=== PATIENT | female | born 1990 | race Caucasian/White ===

== ENCOUNTER 2019-05-13 09:46 | Day surgery (SDC) | payer BC, OTHER ==
[2019-05-09 18:30] VITALS: BMI 34.5
[2019-05-13] MEDS ORDERED: MIDAZOLAM HCL 2 MG/2 ML SINGLE DOSE VIAL ONE (11:48)
[2019-05-13] MEDS ORDERED: PROPOFOL 20 ML ONE ×4 (11:49→11:53)
[2019-05-13] MEDS ORDERED: ONDANSETRON 4 MG/2 ML VIAL IVPUSH PRN (12:13)
[2019-05-13] MEDS ORDERED: oxyCODONE HCL 5 MG TABLET PO PRN (12:13)
[2019-05-13] MEDS ORDERED: LACTATED RINGERS SOLUTION 1,000 ML IV SCH (12:15)
--- NOTE | 2019-05-13 12:29 | PN ---
Progress Note (short form) - Note Progress Note: VSS Minimal bleeding Instructed Dicharge
--- NOTE | 2019-05-13 12:29 | OP ---
Operative Note - Note: Operative Date: 05/13/19 Pre-Operative Diagnosis: Tight hymenal ring Operation: Excisionj of hymednal septum. Release of hymenal ring. Post-Operative Diagnosis: Other (Tight hymenal ring and midline septum.) Surgeon: Nilo Eller Anesthesia: General Specimens Removed: part of hymenal septum Estimated Blood Loss (mls): 5 Operative Report Dictated: Yes
[2019-05-13] MEDS ORDERED: ACETAMINOPHEN 325 MG TABLET (FP) PO PRN (12:30)
[2019-05-13] MEDS ORDERED: IBUPROFEN 400 MG TABLET (FP) PO PRN (12:30)
[2019-05-13 13:15] VITALS: TEMP 98.6
[2019-05-13 13:39] VITALS: BP 131/67; PULSE 78
--- NOTE | 2019-05-13 21:42 | OP ---
DATE OF OPERATION: 05/13/2019 PREOPERATIVE DIAGNOSIS: Congenital stricture of hymenal ring. 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 PROCEDURE: 1. Release and excision of central hymenal bridge. 2. Hymenotomy. SURGEON: Chloe Eller MD ANESTHESIOLOGIST: JARRETT Sanabria ANESTHESIA: General with LMA. PROCEDURE AND FINDINGS: Under light general anesthesia, patient was placed in dorsal lithotomy position. Vulvovaginal Betadine scrub was carried out, and patient was draped for the procedure. Proper examination of the area was possible under general anesthesia and with patient completely relaxed. Thick, vascular "bridge" was noted in the middle of the hymen running vertically. In addition, hymen was strictured and tight. Otherwise, external genitalia and vaginal examination revealed no issues with the anatomy. Both superior and inferior bases of the hymenal bridge were clamped with mosquito clamps. Middle part of the bridge was excised. Using 3-0 chromic, both stumps were secured. Bleeding was controlled with another inferior [id number] chromic 3-0 suture. Hymen was still tight, barely allowing the passage of 1 finger. It was then incised using Bovie at 5, 7, and 11 o'clock where the hymenal membranes were relatively thin and avascular. In spite of using cautery, some minimal bleeding ensued. The bleeding areas were secured with Bovie in the coagulation mode and with [id number] chromic 3-0 sutures. When the procedure was completed, the introitus allowed fairly tight, 2-finger examination. A few minutes were allowed to elapse, and patient was again re-examined. The area was watched for persistent bleeding, and there was none. With perfect hemostasis and sufficient introital opening, the procedure was completed. Total blood loss was no more than 5 mL. Patient withstood the procedure as well as anesthesia without any complications. She was awakened and transferred to PACU comfortable and stable. CHLOE ELLER MD JR/[id number]
--- NOTE | 2019-05-14 17:37 | PATH ---
Surgical Pathology Report Patient Name: CANDELARIA GONZALEZ Med. Rec. #: [id number] /Age/Gender: 1990 (Age: 28) / F Account: [id number] Location: [facility] SURGICAL Taken: 05/13/2019 Received: 05/13/2019 Reported: 05/14/2019 Physicians: Nilo Eller MD Specimen(s) Received HYMENAL TISSUE Clinical History Tight hymenal ring Final Diagnosis HYMENAL TISSUE, HYMENECTOMY: FIBROCONNECTIVE TISSUE WITH ASSOCIATED STRATIFIED SQUAMOUS EPITHELIUM COMPATIBLE WITH HYMENAL TISSUE. Electronically Signed Marcy Jaffe M.D. Gross Description Received in formalin labeled "hymenal tissue" 3 irregular fragments of white-soto soft tissue ranging in size from 0.2-0.7 cm. Entire specimen is submitted in one cassette. MLSZ/05/13/2019 [place]/05/13/2019
== END 2019-05-13 13:35 | disposition home or self-care (01) ==
LOC: JASU-SURG 09:46
PROVIDERS: ATTEND Specialist
PROC: 0UBK7ZZ Excision of Hymen, Via Natural or Artificial Opening (ICD-10-PCS; principal; 2019-05-13 12:30)
DX: N89.6 Tight hymenal ring (principal); N93.9 Abnormal uterine and vaginal bleeding, unspecified; N94.6 Dysmenorrhea, unspecified
CPT/HCPCS: 84703; 88304-TC; 94760